=== PATIENT | female | born 1995 | race American Indian/Alaskan Native ===

== ENCOUNTER 2021-11-20 13:21 | Emergency (ER) | payer SELFPAY ==
[2021-11-20 14:13] VITALS: BP 105/62
== END 2021-11-20 20:50 | disposition left against medical advice (07) ==
LOC: ED 13:21
DX: J00 Acute nasopharyngitis [common cold] (principal); Z53.21 Procedure and treatment not carried out due to patient leaving prior to being seen by health care provider